=== PATIENT | female | born 1985 | race American Indian/Alaskan Native ===

== ENCOUNTER 2017-08-26 07:52 | Emergency (ER) | payer SELFPAY ==
[2017-08-26 08:48] LABS: Basophils % (Auto) 0.8 % (0.0-1.8); Eosinophils # (Auto) 0.2 K/mm3 (0.0-0.4); Eosinophils % (Auto) 3.5 % (0.0-4.3); Hematocrit 39.9 % (30.3-42.9); Lymphocytes # (Auto) 1.6 K/mm3 (1.2-5.4); Lymphocytes % (Auto) 36.6 % (13.4-35.0); Mean Corpuscular HGB Conc 33 % (30-34); Mean Corpuscular Hemoglobin 28 pg (28-32); Mean Corpuscular Volume 86 fl (79-97); Monocytes # (Auto) 0.4 K/mm3 (0.0-0.8); Monocytes % (Auto) 10.1 % (0.0-7.3); Platelet Count 251 K/mm3 (140-440); Red Blood Count 4.65 M/mm3 (3.65-5.03); Red Cell Distribution Width 13.3 % (13.2-15.2)
[2017-08-26 09:00] LABS: BUN/Creatinine Ratio 11; Blood Urea Nitrogen 11 mg/dL (7-17); Calcium 8.9 mg/dL (8.4-10.2); Hemolysis Index 4
[2017-08-26 09:13] LABS: Bacteria,Urine 1+ /HPF (Negative); Bilirubin,Urine NEG (Negative); Blood,Urine NEG (Negative); Color,Urine Yellow (Yellow); Mucus,Urine FEW /HPF; Protein,Urine <15 mg/dL mg/dL (Negative); Urobilinogen,Urine < 2.0 mg/dL (<2.0)
[2017-08-26] MEDS ORDERED: NACL 0.9% 1000 ML 2,000 ML IV ONE (11:58)
[2017-08-26] MEDS ORDERED: NACL 0.9% 1000 ML 1,000 ML IV ONE ×2 (13:04→14:28)
--- NOTE | 2017-08-26 13:19 | Emergency Department Report ---
HPI - General Chief Complaint: Hyperglycemia Time Seen by Provider: 08/26/17 12:56 - HPI HPI: Room 17 The patient is a 32-year-old female presented with the chief complaint of polyuria. The patient states for the past 1-2 weeks she's noticed polyuria and polydipsia. The patient states her symptoms have been worsening and she wakes up frequently in the night to urinate. Patient also complains of having a dry mouth and blurred vision. There's been no nausea or vomiting. There is been no unexplained weight loss Location: [See above] Duration: One to 2 weeks Quality: Polydipsia, polyuria Severity: Moderate Modifying factors: [see above] Context: [see above] Mode of transportation: [not driving] ED Past Medical Hx - Past Medical History Previous Medical History?: No - Surgical History Past Surgical History?: No - Family History Family history: no significant - Social History Smoking Status: Current Every Day Smoker Substance Use Type: None (denies illicit drug use), Alcohol (occasional ) ED Review of Systems ROS: Stated complaint: FREQUENT URINATION Other details as noted in HPI Eyes: vision change Endocrine: increased thirst, increased urine. denies: unexplained weight loss Gastrointestinal: denies: nausea, vomiting Physical Exam - Physical Exam Vital Signs: Vital Signs 08/26/17 07:58 Temperature 99 F Pulse Rate 95 H Respiratory 18 Rate Blood Pressure 112/68 O2 Sat by Pulse 98 Oximetry Physical Exam: GENERAL: The patient is well-developed well-nourished female lying on stretcher not appearing to be in acute distress. [] HEENT: Normocephalic. Atraumatic. Extraocular motions are intact. Patient has moist mucous membranes. NECK: Supple. Trachea midline CHEST/LUNGS: Clear to auscultation. There is no respiratory distress noted. HEART/CARDIOVASCULAR: Regular. There is no tachycardia. There is no gallop rub or murmur. ABDOMEN: Abdomen is soft, nontender. Patient has normal bowel sounds. There is no abdominal distention. SKIN: There is no rash. There is no edema. There is no diaphoresis. NEURO: The patient is awake, alert, and oriented. The patient is cooperative. The patient has normal speech MUSCULOSKELETAL: There is no evidence of acute injury. ED Course Vital Signs 08/26/17 07:58 Temperature 99 F Pulse Rate 95 H Respiratory 18 Rate Blood Pressure 112/68 O2 Sat by Pulse 98 Oximetry ED Medical Decision Making - Lab Data Result diagrams: 08/26/17 08:39 08/26/17 08:39 Laboratory Tests 08/26/17 08/26/17 08/26/17 08:01 08:10 08:36 WBC RBC Hgb Hct MCV MCH MCHC RDW Plt Count Lymph % (Auto) [place] % (Auto) Eos % (Auto) Baso % (Auto) Lymph # [place] # Eos # Baso # Seg Neutrophils % Seg Neutrophils # VBG pH 7.348 Sodium Potassium Chloride Carbon Dioxide Anion Gap BUN Creatinine Estimated GFR BUN/Creatinine Ratio Glucose POC Glucose 487 H Hemoglobin A1c Calcium Urine Color Yellow Urine Turbidity Clear Urine pH 5.0 Ur Specific [place] 1.035 H Urine Protein <15 mg/dl Urine Glucose (UA) >=500 Urine Ketones 80 Urine Blood Neg Urine Nitrite Neg Urine Bilirubin Neg Urine Urobilinogen < 2.0 Ur Leukocyte Esterase Tr Urine WBC (Auto) 8.0 H Urine RBC (Auto) 2.0 U Epithel Cells (Auto) 3.0 Urine Bacteria (Auto) 1+ Urine Mucus Few 08/26/17 08/26/17 08/26/17 08:39 08:39 08:39 WBC 4.4 L RBC 4.65 Hgb 13.0 Hct 39.9 MCV 86 MCH 28 MCHC 33 RDW 13.3 Plt Count 251 Lymph % (Auto) 36.6 H [place] % (Auto) 10.1 H Eos % (Auto) 3.5 Baso % (Auto) 0.8 Lymph # 1.6 [place] # 0.4 Eos # 0.2 Baso # 0.0 Seg Neutrophils % 49.0 Seg Neutrophils # 2.2 VBG pH Sodium 132 L Potassium 4.5 Chloride 90.6 L Carbon Dioxide 19 L Anion Gap 27 BUN 11 Creatinine 1.0 Estimated GFR > 60 BUN/Creatinine Ratio 11 Glucose 538 H* POC Glucose Hemoglobin A1c 11.3 H Calcium 8.9 Urine Color Urine Turbidity Urine pH Ur Specific [place] Urine Protein Urine Glucose (UA) Urine Ketones Urine Blood Urine Nitrite Urine Bilirubin Urine Urobilinogen Ur Leukocyte Esterase Urine WBC (Auto) Urine RBC (Auto) U Epithel Cells (Auto) Urine Bacteria (Auto) Urine Mucus 08/26/17 13:04 WBC RBC Hgb Hct MCV MCH MCHC RDW Plt Count Lymph % (Auto) [place] % (Auto) Eos % (Auto) Baso % (Auto) Lymph # [place] # Eos # Baso # Seg Neutrophils % Seg Neutrophils # VBG pH 7.305 L Sodium Potassium Chloride Carbon Dioxide Anion Gap BUN Creatinine Estimated GFR BUN/Creatinine Ratio Glucose POC Glucose Hemoglobin A1c Calcium Urine Color Urine Turbidity Urine pH Ur Specific [place] Urine Protein Urine Glucose (UA) Urine Ketones Urine Blood Urine Nitrite Urine Bilirubin Urine Urobilinogen Ur Leukocyte Esterase Urine WBC (Auto) Urine RBC (Auto) U Epithel Cells (Auto) Urine Bacteria (Auto) Urine Mucus - Differential Diagnosis new onset diabetes, DKA Critical care attestation.: If time is entered above; I have spent that time in minutes in the direct care of this critically ill patient, excluding procedure time. ED Disposition Clinical Impression: Diabetes mellitus, DKA (diabetic ketoacidoses) Disposition: OP ADMIT IP TO THIS HOSP Is pt being admited?: Yes Does the pt Need Aspirin: No Condition: Fair Instructions: Diabetes Mellitus Type 2 in Adults (ED), Diabetic Ketoacidosis ( ED) Referrals: PRIMARY CARE, [Primary Care Provider] - 3-5 Days Time of Disposition: 13:41 (hospitalist paged (Dr. Patle))
[2017-08-26] MEDS ORDERED: D50W (25GM) Syringe IV PRN ×2 (13:40→15:26)
[2017-08-26 14:20] LABS: BUN/Creatinine Ratio 11; Blood Urea Nitrogen 11 mg/dL (7-17); Calcium 7.7 mg/dL (8.4-10.2); Hemolysis Index 23
[2017-08-26] MEDS ORDERED: HumuLIN R 100 UNITS in NACL 0.9% 99 ML IV SCH (15:00)
[2017-08-26] MEDS: HumuLIN R SUB-Q SCH ×2 (15:39→17:51)
--- NOTE | 2017-08-26 17:28 | History and Physical Report ---
History of Present Illness Chief complaint: My blood sugar is high History of present illness: 32 YO Female with Anemia, Nicotine Dependence presents to ED for evaluation. Pt seen and evaluated and found to have new onset diabetes. Pt treated with IVF, supportive care and insulin therapy with normalization of serum glucose. Pt medically optimzied and back to usual state of health. Pt counseled regarding insulin therapy, and consistent carbohydrate diet. Pt discharged home and instructed to f/u pcp 1wk. Past History Past Medical History: anemia Past Surgical History: No surgical history Social history: single, smoking Family history: diabetes, hypertension Medications and Allergies Allergies Allergy/AdvReac Type Severity Reaction Status Date / Time No Known Allergies Allergy Verified 08/26/17 13:04 Home Medications Medication Instructions Recorded Confirmed Last Taken Type Blood Sugar Diagnostic [Test 1 each MC TID #1 box 08/26/17 Unknown Rx Strips] Insulin NPH/Regular [Novolin 70/30] 12 unit SUB-Q TID #1 vial 08/26/17 Unknown Rx Syringe-Needle,Insulin,0.5 ml 1 each MC TID #1 box 08/26/17 Unknown Rx [Insulin Syringe/Needle 0.5 ML] Active Meds: Active Medications Dextrose (D50w (25gm) Syringe) 0 ml IV ONCE PRN PRN Reason: Hypoglycemia Dextrose (D50w (25gm) Syringe) 50 ml IV PRN PRN PRN Reason: Hypoglycemia Insulin Human Regular (Humulin R) 0 units SUB-Q [facility]; Protocol Last Admin: 08/26/17 15:39 Dose: 8 units Review of Systems Constitutional: no weight loss, no weight gain, no fever, no chills Ears, nose, mouth and throat: no ear pain, no ear discharge, no tinnitis, no decreased hearing, no nose pain, no nasal congestion, no nasal discharge Breasts: no change in shape, no swelling, no mass Cardiovascular: no chest pain, no orthopnea, no palpitations, no rapid/ irregular heart beat Respiratory: no cough, no cough with sputum, no excessive sputum, no hemoptysis Gastrointestinal: no abdominal pain, no nausea, no vomiting, no diarrhea, no constipation, no change in bowel habits, no hematemesis, no coffee ground emesis Genitourinary Female: no dyspareunia, no dysmenorrhea, no flank pain, no menorrhagia, no dysuria Rectal: no pain, no incontinence, no bleeding Musculoskeletal: no neck stiffness, no neck pain, no shooting arm pain, no arm numbness/tingling, no low back pain, no shooting leg pain, no leg numbness/ tingling, no redness of joints Integumentary: no deferred, no rash, no pruritis, no redness Neurological: no head injury, no transient paralysis, no paralysis, no weakness , no parathesias, no numbness Psychiatric: no anxiety, no memory loss, no change in sleep habits, no sleep disturbances Endocrine: polyphagia, excessive thirst, polydipsia, polyuria, no cold intolerance, no heat intolerance Hematologic/Lymphatic: no easy bruising, no easy bleeding, no lymphedema Allergic/Immunologic: no urticaria, no allergic rhinitis, no wheezing, no anaphylaxis, no angioedema Exam - Constitutional Vitals: Temp Pulse Resp BP Pulse Ox 99 F 73 18 128/75 100 08/26/17 07:58 08/26/17 13:57 08/26/17 13:57 08/26/17 16:15 08/26/17 16:15 General appearance: Present: no acute distress, well-nourished - EENT Eyes: Present: PERRL ENT: hearing intact, clear oral mucosa - Neck Neck: Present: supple, normal ROM - Respiratory Respiratory effort: normal Respiratory: bilateral: CTA - Cardiovascular Heart Sounds: Present: S1 & S2. Absent: rub, click - Extremities Extremities: pulses symmetrical, No edema Peripheral Pulses: within normal limits - Abdominal General gastrointestinal: Present: soft, non-tender, non-distended, normal bowel sounds Female genitourinary: Present: normal - Integumentary Integumentary: Present: clear, warm, dry - Musculoskeletal Musculoskeletal: gait normal, strength equal bilaterally - Psychiatric Psychiatric: appropriate mood/affect, intact judgment & insight - Neurologic Neurologic: CNII-XII intact, moves all extremities Results - Labs CBC & Chem 7: 08/26/17 08:39 08/26/17 13:53 Labs: Abnormal lab results 08/26/17 08/26/17 08/26/17 Range/Units 08:01 08:10 08:39 WBC 4.4 L (4.5-11.0) K/mm3 Lymph % (Auto) 36.6 H (13.4-35.0) % [place] % (Auto) 10.1 H (0.0-7.3) % VBG pH (7.320-7.420) Sodium (137-145) mmol/L Chloride (98-107) mmol/L Carbon Dioxide (22-30) mmol/L Glucose (65-100) mg/dL POC Glucose 487 H (70-105) Hemoglobin A1c (4-6) % Calcium (8.4-10.2) mg/dL Ur Specific [place] 1.035 H (1.003-1.030) Urine WBC (Auto) 8.0 H (0.0-6.0) /HPF 08/26/17 08/26/17 08/26/17 Range/Units 08:39 08:39 13:04 WBC (4.5-11.0) K/mm3 Lymph % (Auto) (13.4-35.0) % [place] % (Auto) (0.0-7.3) % VBG pH 7.305 L (7.320-7.420) Sodium 132 L (137-145) mmol/L Chloride 90.6 L (98-107) mmol/L Carbon Dioxide 19 L (22-30) mmol/L Glucose 538 H* (65-100) mg/dL POC Glucose (70-105) Hemoglobin A1c 11.3 H (4-6) % Calcium (8.4-10.2) mg/dL Ur Specific [place] (1.003-1.030) Urine WBC (Auto) (0.0-6.0) /[facility] 08/26/17 08/26/17 08/26/17 Range/Units 13:53 15:20 17:24 WBC (4.5-11.0) K/mm3 Lymph % (Auto) (13.4-35.0) % [place] % (Auto) (0.0-7.3) % VBG pH (7.320-7.420) Sodium 136 L (137-145) mmol/L Chloride 97.6 L (98-107) mmol/L Carbon Dioxide 20 L (22-30) mmol/L Glucose 366 H (65-100) mg/dL POC Glucose 316 H 172 H (70-105) Hemoglobin A1c (4-6) % Calcium 7.7 L (8.4-10.2) mg/dL Ur Specific [place] (1.003-1.030) Urine WBC (Auto) (0.0-6.0) /HPF Assessment and Plan - Patient Problems (1) Diabetes mellitus Status: Acute Qualifiers: Diabetes mellitus type: type 1 Plan to address problem: Consistent carbohydrate diet, Insulin, accu check, f/u pcp 1 wk with blood glucose log.
[2017-08-26 17:50] VITALS: BP 111/57
== END 2017-08-26 19:12 | disposition admitted as inpatient to this hospital (09) ==
LOC: ED 07:52
DX: E11.10 Type 2 diabetes mellitus with ketoacidosis without coma (principal); F17.200 Nicotine dependence, unspecified, uncomplicated
CPT/HCPCS: 36415; 80048; 81001; 82805; 82962; 83036; 83735; 84100; 85025; 96360; 96361; 96372; 99284; J7030; J1815